=== PATIENT | female | born 1955 | race Caucasian/White ===

== ENCOUNTER → 2017-06-19 | Outpatient (CLI) | payer OTHER ==
[2017-05-11 11:00] VITALS: BP 92/52
[~2017-06-19] MED LIST: ASPI81TA50 PO; CHOL10003 PO; CYAN10005 PO; ESOM20CA PO; HYDR-2758 PO; HYDR12.53 PO; IBUP-1007 PO; LISI10TA2 PO; METO10TA81 PO; TIMO10DR5 EACHEYE; TRAM50TA PO
[2017-06-19 11:31] LABS: CALCIUM 8.9 mg/dL (8.5-10.1); GFR 56.4; POTASSIUM 4.1 mmol/L (3.5-5.1)
== END | disposition home or self-care (01) ==
LOC: LAB 10:56
PROVIDERS: ATTEND Internal Medicine Cardiovascular Disease
DX: I10 Essential (primary) hypertension (principal)
CPT/HCPCS: 36415; 80048

== ENCOUNTER → 2017-11-20 | Outpatient (CLI) | payer OTHER | END | disposition home or self-care (01) | LOC: ECHO 13:25 | DX: I11.9 Hypertensive heart disease without heart failure (principal); Q21.1 Atrial septal defect | CPT/HCPCS: 93306 ==

== ENCOUNTER → 2018-02-05 | Outpatient (CLI) | payer OTHER | END | disposition home or self-care (01) | LOC: US 11:56 | DX: M79.604 Pain in right leg (principal); M79.89 Other specified soft tissue disorders | CPT/HCPCS: 93971 ==